=== PATIENT | female | born 1980 | race Caucasian/White ===

== ENCOUNTER → 2017-08-10 | Outpatient (CLI) | payer BC ==
[~2017-08-10] VITALS: Ht 167.6 cm; Wt 91.0 kg
[~2017-08-10] MED LIST: DOCUSATE SODIU100 MG PO; ENDOCET 5-3251 EACH PO; IBUPROFEN800 MG PO; Motrin PO; NATALCARE RX1 TABLET PO; PERI-COLACE TA1 EACH PO; Percocet 5/325,Endoc PO
[2017-08-10 09:18] VITALS: BP 131/75
== END | disposition home or self-care (01) ==
LOC: IVINF 09:13
DX: Z31.82 Encounter for Rh incompatibility status (principal); Z3A.29 29 weeks gestation of pregnancy; Z67.41 Type O blood, Rh negative
CPT/HCPCS: 96372; J2790

== ENCOUNTER 2017-10-17 07:02 | Inpatient (IN) | payer BC ==
[2017-10-17] VITALS (15 sets, daily range): BP systolic 123–149; BP diastolic 70–84
[~2017-10-17] VITALS: Ht 167.6 cm; Wt 92.7 kg
[2017-10-17 09:14] LABS: BASOPHIL (%) 0.5 % (0-1); EOSINOPHIL (%) 0.5 % (0-5); HEMATOCRIT 37.6 % (36.0-46.0); HEMOGLOBIN 12.9 G/DL (11.9-15.5); IMMATURE GRANULOCYTE (%) 0.7 % (0.0-0.7); LYMPHOCYTE (%) 28.2 % (15-42); LYMPHOCYTE COUNT 2.3 K/uL (1.0-2.8); MCH 32.3 PG (29.0-34.0); MCHC 34.3 G/DL (30.0-36.0); MONOCYTE (%) 6.1 % (3-12); MONOCYTE COUNT 0.5 K/uL (0-0.8); NEUTROPHIL COUNT 5.1 K/uL (1.8-6.4); PLATELET COUNT 158 K/uL (156-360); RBC DIS.WIDTH-CV 13.2 % (11.8-14.6); RBC DIS.WIDTH-SD 45.1 % (39-53)
[2017-10-17 10:09] LABS: AMPHETAMINE NEGATIVE (500 ng/mL); BARBITURATES NEGATIVE (200 ng/mL); BENZODIAZEPINES NEGATIVE (150 ng/mL); BUPRENORPHINE NEGATIVE (10 ng/mL); COCAINE NEGATIVE (150 ng/mL); METHADONE NEGATIVE (200 ng/mL); METHAMPHETAMINE NEGATIVE (500 ng/mL); OPIATES (MORPHINE) NEGATIVE (100 ng/mL); OXYCODONE NEGATIVE (100 ng/mL); PHENCYCLIDINE NEGATIVE (25 ng/mL); PROPOXYPHENE NEGATIVE (300 ng/mL); THC CANNABINOIDS NEGATIVE (50 ng/mL); TRICYCLIC ANTIDEPRESSANTS NEGATIVE (300 ng/mL)
[2017-10-17] MEDS ORDERED: IBUPROFEN800 MG PO (14:20)
[2017-10-18 07:17] VITALS: BP 121/78
[2017-10-18 14:45] VITALS: BP 130/76
[2017-10-19 07:46] VITALS: BP 129/78
== END 2017-10-19 14:28 | disposition home or self-care (01) | DRG 775 ==
LOC: LDRP-OP 07:02 → 2WEST 07:03 → LDRP-OP 11:25 → 2WEST 13:42 → LDRP-OP 12-21 15:26
PROVIDERS: Midwife
DX: O24.420 Gestational diabetes mellitus in childbirth, diet controlled (principal); O70.0 First degree perineal laceration during delivery; Z3A.39 39 weeks gestation of pregnancy; Z37.0 Single live birth
CPT/HCPCS: 85025; J7120